=== PATIENT | male | born 1980 | race Caucasian/White ===

== ENCOUNTER 2025-07-07 11:42 | Day surgery (SDC) | payer BC, SELFPAY | END 2025-07-07 12:12 | disposition home or self-care (01) | LOC: GI 11:42 | PROVIDERS: ATTENDING PHYSICIAN Internal Medicine Gastroenterology | DX: Z12.11 Encounter for screening for malignant neoplasm of colon (principal); K64.8 Other hemorrhoids; K57.30 Diverticulosis of large intestine without perforation or abscess without bleeding; R13.10 Dysphagia, unspecified; D12.3 Benign neoplasm of transverse colon; D12.4 Benign neoplasm of descending colon; K62.1 Rectal polyp; Z83.719 Family history of colon polyps, unspecified | CPT/HCPCS: 45380; 43239; 88305 ==